=== PATIENT | female | born 1940 | race Caucasian/White ===

== ENCOUNTER 2021-04-15 06:46 | Observation (INO) ==
--- NOTE | 2021-04-08 15:37 | PAT Medication Instructions ---
Medication Instructions Date of Service April 08, 2021 Home Medications atorvastatin 40 mg PO HS celecoxib [Celebrex] 200 mg PO QAM levothyroxine [Synthroid] 75 mcg PO QAM raloxifene [Evista] 60 mg PO QAM ASK your surgeon for instructions celecoxib [Celebrex] 200 mg PO QAM ASK your prescriber and surgeon raloxifene [Evista] 60 mg PO QAM Take morning of surgery With a small sip of water, OTHERWISE NOTHING TO EAT OR DRINK AFTER MIDNIGHT: levothyroxine [Synthroid] 75 mcg PO QAM Take evening before surgery atorvastatin 40 mg PO HS Other Notes If you have any questions please call us at [phone] or [phone] or or [phone]
--- NOTE | 2021-04-11 10:17 | Anesthesiology Consultation ---
Date of Service April 11, 2021 Assessment & Plan (1) Encounter for pre-operative examination: COVID Status: As of 04/11 assessment, patient denies travel to endemic area, known exposure/sick contacts, or symptoms of COVID19. Patient denies impending travel plans, gatherings or events between now and surgery. Preoperative COVID19 testing completed today at [facility] (04/11). Patient made aware to self-isolate as much as possible between COVID testing and surgery. Pt is fully vaccinated for COVID-19. Finnish is primary language, but Yemeni comprehension and fluency is good/sufficient. Accompanied by [id number] to [facility] appointment, who helped with some translation. Chart Review Chart Review: Acceptable Risk for Surgery and Patient seen in Pre Admission Testing Teaching & Discussion Instructed NPO after midnight before surgery, except medications with 15 cc of water. Medication instructions provided according to the [facility] guidelines. History Surgery Operation Date: 04/15/21 08:50 Proposed Procedures p Left Total Knee Arthroplasty(Left) - Louis Houston MD Height/Weight Height: 5 ft 1 in Weight: 55.2 kg Allergies Allergy/AdvReac Type Severity Reaction Status Date / Time No Known Allergies Allergy Verified 04/11/21 08:55 Medications Home Medications Medication Instructions Recorded Confirmed Last Taken atorvastatin 40 mg PO HS 04/04/21 04/11/21 Unknown celecoxib [Celebrex] 200 mg PO QAM 04/04/21 04/11/21 Unknown levothyroxine [Synthroid] 75 mcg PO QAM 04/04/21 04/11/21 Unknown raloxifene [Evista] 60 mg PO QAM 04/04/21 04/11/21 Unknown Past Medical History Medical History Anxiety Bilateral primary osteoarthritis of knee Hyperlipidemia Hypothyroidism Osteoarthritis Exercise / Class Metabolic Activity II 4-5 Yardwork/Stairs/Walk up hill (No limiting Cp or SOB with 1FOS) Past Surgical History Surgical History History of cataract surgery bilater History of hysterectomy tumor removed from one ovary Past Anesthesia History No Hx of Anesthesia Complications and No Family Hx of Anesthesia Complications History of PONV No Hx of PONV and No Hx of Motion Sickness Social History Smoking Status: Never smoker Do You Dip or Chew Tobacco: No Hx Alcohol Use: No Hx Substance Use: No substance use type: does not use Review of Systems Pt denies any recent chest pain, shortness of breath, cough, fever, URI, or uncontrolled acid reflux. +sometimes gets palpitations with anxiety Physical Exam Vital Signs BP: 112/75 P: 79bpm SPO2: 96% RA T: 98.4 F R: 16 ENMT Mouth: + dental restorations (front upper incisors capped) and + small oral opening; no chipped teeth and no loose teeth Thyromental Distance: > or= 3.5 Finger Breadths Mallampati Class: III Neck normal visual inspection; neck extension not limited Respiratory normal respiratory effort, lungs clear to auscultation Cardiovascular RRR, no murmur, no edema Testing Laboratory Results 04/11/21 10:35 PT 10.2 Seconds (9.0-12.0) 04/11/21 10:35 INR 1.0 (0.9-1.1) 04/11/21 10:35 APTT 26.1 Seconds (21.0-31.0) 04/11/21 10:35 Blood Type O Positive 04/11/21 10:35 Antibody Screen NEGATIVE 04/11/21 10:35 CBC 03/31/21 WBC: 4.5 H/H: 12.7/37.8 PLATELETS: 351 Electrocardiogram Date: 04/11/21 Findings: + NSR @ (74bpm) Chest X-Ray Date: 04/11/21 Findings: + NAD
--- NOTE | 2021-04-11 11:10 | XRay Report ---
XR chest Pre-admission PA/Lat HISTORY: 80 years-old Female pat chronic degenerative joint disease COMPARISON: None TECHNIQUE: PA and lateral views of the chest FINDINGS: The cardiac mediastinal and hilar silhouettes are within normal limits. There is no pneumothorax, ple ural effusion, airspace consolidation or overt pulmonary edema. There is mild rotation on the lateral view. Bones of the chest appear grossly intact. IMPRESSION: No acute process. ACT 112: Negative or not required by law. The above report was generated using voice recognition software. It may contain grammatical, syntax o r spelling errors. Electronically signed by: Carmelo Borrero M.D. 04/11/2021 11:09 AM
[2021-04-11 11:31] LABS: Partial Thromboplastin Time 26.1 Seconds (21.0-31.0); Prothrombin Time 10.2 Seconds (9.0-12.0)
[2021-04-11 13:21] LABS: BUN Creatinine Ratio 20.3 (10-20); Calcium 8.9 mg/dl (8.5-10.1); Creatinine Clr Calc Pharmacy 46.6 ml/min; Est GFR (African American) 88.5 ml/min; Est GFR (Non-African American) 76.3 ml/min; Potassium 3.9 mmol/L (3.5-5.1)
--- NOTE | 2021-04-11 18:00 | Electrocardiogram Report ---
Test Reason : Blood Pressure : / mmHG Vent. Rate : 074 BPM Atrial Rate : 074 BPM P-R Int : 164 ms QRS Dur : 076 ms QT Int : 402 ms P-R-T Axes : 069 037 052 degrees QTc Int : 446 ms Normal sinus rhythm Normal ECG No previous ECGs available Confirmed by Arnav Vance ([id number]) on 04/11/2021 6:00:00 PM Referred By: Louis Houston Confirmed By:Samuel Vance
[~2021-04-15 06:46] MED LIST: ACETAMINOPHEN 500 MG TAB PO SCH; BUPIVACAINE 0.5 % 5 MG/1 ML PF 10ML VIAL ONE; BUPIVACAINE LIPOSOME/PF 266 MG, BUPIVACAINE/EPINEPHRINE 50 ML, SODIUM CHLORIDE 0.9% PF ... INFIL SCH; EPINEPHrine INJ 1 MG/ML AMP ONE; FAMOTIDINE 20 MG TAB PO SCH; GABAPENTIN 300 MG CAP PO SCH; LR 500ML BOLUS, THEN 15ML/HR IV SCH; LR 60ML/HR IV SCH; METOCLOPRAMIDE HCL 10 MG TABLET PO SCH; ROPIVACAINE 0.5% 5 MG/ML 30 ML VIAL ONE; Scopolamine 1 MG TDSY TD SCH; TRANEXAMIC ACID 1,000 MG **IV Intra-op IV SCH; ceFAZolin 2000MG 2,000 MG/15 ML SYR IV SCH
--- NOTE | 2021-04-15 06:52 | History & Physical Bridge Note ---
Date of Service April 15, 2021 History & Physical Bridge Note I have examined the patient, reviewed the History & Physical and in the interval since the performance of the History & Physical I have noted the following changes of clinical significance: no changes noted
[2021-04-15] MEDS ORDERED: MIDAZOLAM HCL 1 MG/ML 2ML VIAL ONE (07:41)
[2021-04-15] MEDS ORDERED: fentaNYL citrate PF 100 MCG/2 ML VIAL ONE (07:41)
[2021-04-15] MEDS ORDERED: ATROPINE SULFATE 0.1 MG/ML 10ML SYR IV PRN (08:24)
[2021-04-15] MEDS ORDERED: PHENYLEPHRINE 100MCG/ML 5ML SYR IV PRN (08:24)
[2021-04-15] MEDS ORDERED: ePHEDrine sulfate 50 MG/ML AMP IV PRN (08:24)
[2021-04-15] MEDS ORDERED: MEPERIDINE HCL 25 MG/ML CARP/VIAL IV PRN (08:24)
[2021-04-15] MEDS ORDERED: ONDANSETRON INJ 2 MG/ML 2 ML VIAL IV PRN ×2 (08:24→12:59)
[2021-04-15] MEDS ORDERED: LABETALOL HCL IV 5 MG/ML 20ML IV PRN (08:24)
[2021-04-15] MEDS ORDERED: HYDROmorphone INJ 1 MG/ML SYRINGE IV PRN (08:24)
[2021-04-15] MEDS ORDERED: BUPIVACAINE 0.25% PF 30 ML VIAL ONE (09:36)
[2021-04-15] MEDS ORDERED: BUPIVACAINE LIPOSOME 1.3% 266 MG/20 ML VIAL ONE (09:36)
[2021-04-15] MEDS ORDERED: SODIUM CHLORIDE 0.9% PF 50 ML VIAL ONE (09:36)
[2021-04-15] MEDS ORDERED: PHENYLEPHRINE 100MCG/ML 5ML SYR ONE (10:27)
[2021-04-15] MEDS ORDERED: PROPOFOL IV EMULSION 10 MG/ML 20 ML VIAL IV ONE (10:27)
[2021-04-15] MEDS ORDERED: ONDANSETRON INJ 2 MG/ML 2 ML VIAL ONE (10:38)
[2021-04-15] MEDS ORDERED: DEXAMETHASONE SOD INJ 4 MG/ML VIAL ONE (10:38)
--- NOTE | 2021-04-15 11:40 | Operative Report ---
Post Operative Report Pre & Post Diagnosis Operation Date: 04/15/21 08:50 Pre-Op Diagnosis: Left Knee DJD, Left Knee Pain Post-Op Diagnosis: Left Knee DJD, Left Knee Pain I identified the patient and participated in the time-out.: Yes Procedure Operation Date: 04/15/21 08:50 Actual Procedures p Left Total Knee Arthroplasty(Left) - Louis Houston MD Surgeon Louis Houston MD Mortgage Coordinator OSITO Hawkins Estimated Blood Loss 50 Findings Consistent with Post-Op Diagnosis Operative findings were advanced left knee DJD. She extensive grade 4 cywe-di-exml disease and eburnation of the entire medial compartment. She had a varus deformity to her knee. Moderate sized knee effusion. The lateral and patellofemoral compartments were fairly well-preserved. Fluids 1000 cc. Specimens Left knee sent for pathology. Drains None Anesthesia Type General Regional Complications none Disposition Accompanied Patient To Recovery: No Disposition: Recovery Room Indications Patient is a 80-year-old female has had a long history of bilateral knee pain discomfort left side greater than the right. She lives alone in [place]. She is got family in this area. She failed conservative measures and elected proceed with a left total knee replacement done here so her family was able to t o assist with her postoperative care. Description of Procedure Operative implants consist of: 1 Biomet Vanguard size 65 left posterior stabilized femoral component. 2. Biomet size 67 tibial tray. 3. 12 mm posterior stabilized polyethylene insert. 4. 28 x 8 all polypatella. The patient was taken the operating, identified, placed on the operating table supine position but all contact areas were properly padded. IV antibiotics 5 by anesthesia team. A spinal anesthetic and abductor canal block had been provided in the holding area. Ramos catheter was placed in sterile fashion for left thigh turn was then placed in left lower extremities and prepped draped in usual sterile fashion. The left leg was elevated exsanguinated with use of an Esmarch and turns placed at 300 mmHg. An anterior posterior left knee was then performed to longitudinal incision centered over the patella. Sharp dissection got through subcutaneous is down to the extensor mechanism. A medial parapatellar arthrotomy incision was made. Some subperiosteal dissection was carried out medially but the fat pad was resected from each patella tendon. The lateral patellofemoral ligament was released. Patella subluxated laterally. At this point in the procedure the patient was still feeling her leg at this point so a general anesthetic was implemented. We had temporarily halted the procedure and once this was performed the procedure was resumed expediently. The knee was flexed. The osteophytes were taken off distal femur. The ACL and PCL were then released from distal femur and the tibia subluxated anteriorly. The external treatment line jig was then placed in the interface the tibia and adjusted 12 mm medially. Proximal tibial cut was made remove about 2 mm of bone from the most deficient aspect medial tibial plateau. Some osteophytes taken off medial and posterior medially. Tibia sized to a size 67. Attention drawn the femur. The distal femur then with a sharp drop with intramedullary canal was suction. A left 5 degree valgus cutting guide was placed. Distal femoral cutting block was pinned in place. Distal femoral cut was made to take an additional 3 mm of bone off distal femur. The femur was then sized to a size 65. We did downsize this. She had a fairly small knee from the medial lateral dimensions and but I did not feel we could downsize any further. The AP cutting block was pinned parallel to the epicondylar axis which was 4 degrees of external rotation. The anterior cut, anterior chamfer, posterior cut, posterior chamfer cuts were made. The box cutting guide was placed in just slight lateral box cut was made. The knee was flexed. The remnants of medial lateral menisci were excised. The osteophyte taken off the posterior aspect the femur. A trial femoral component was placed. The tibial tray was pinned in maximum external rotation and the drill and stem punch were used to create defect in proximal tibia for the tibial tray. Knee was then trialed and the 12 mm insert fit most appropriately. Attention drawn the patella. The patella was cleaned of all soft tissue. Patella thickness measured 21 mm in thickness was cut down to 13. Was sized to a size 28 patella. The lug holes were drilled for the 28 patella. The lateral osteophyte is moved. Patella button was placed. Knee was taken through range of motion patella tracked nicely with no thumbs test. Attention drawn to place the permanent components. Nupathe all trial components were removed. Bone plug was placed in the distal femur limit blood loss. Double batch Palacos G cement was mixed. A Biomet [employer] size 65 left posterior stabilized femoral component, size 67 tibial tray, a 12 mm posterior stabilized polyethylene insert, and a 28 x 8 all polypatella then cemented in place. The knee was brought out into full extension total cement hardened. Final cement check was then performed. The pericapsular tissues were injected with total of 100 cc of a combination of 50 cc of half percent Marcaine with epinephrine, 30 cc normal saline, 20 cc of Exparel. The patient did receive 1 g tranexamic acid. The tourniquet was then let down for final tourniquet time of 53 minutes. Hemostasis assured use electrocautery. Extensor mechanism closed with combination 1 PDS suture #1 Vicryl suture in [id number] fashion. Extensor mechanism checked found to be intact and subcutaneous tissue then closed 2 Dexon suture in a buried interrupted fashion. Skin was closed skin stephany. Leg was then cleaned and dried and sterile dressing both Xeroform, 4 x 4's, sterile cast padding, Sergio bandage were applied. Patient then taken to the recovery room in stable condition. Patient tolerated procedure well and there were no complications. Shawn Hawkins, my physician anesthetic assistant, was present for the entire procedure. His assistance was essential and required for appropriate patient positioning, prepping and draping, surgical exposure, performing the technical details of the operation, placement the implants, closure of the wound, and placement of the sterile bandage. I attest to the content of the Intraoperative Record and any orders documented therein. Any exceptions are noted below.
[2021-04-15] MEDS: fentaNYL citrate PF 100 MCG/2 ML VIAL IV PRN ×4 (11:52→12:07)
--- NOTE | 2021-04-15 12:10 | Anesthesiology Progress Note ---
Date of Service April 15, 2021 Anesthesia Post Procedure Vital Signs Vital Signs: Temp Pulse Pulse Resp BP BP Pulse Ox 04/15/21 11:55 83 17 130/75 97 04/15/21 11:45 85 18 116/76 99 04/15/21 11:37 36.3 C L 87 14 121/78 99 04/15/21 09:40 106 H 16 93/66 L 99 04/15/21 09:30 80 16 91/59 L 99 04/15/21 07:41 37.1 C 84 16 117/72 97 Pain Intensity Left Knee: Pain Intensity: 2 Transfer of Care Handoff Completed per policy Notes Mental Status: alert / awake / arousable Patient Amnestic to Procedure: Yes Nausea / Vomiting: adequately controlled Pain: adequately controlled Airway Patency, RR, SpO2: stable & adequate BP & HR: stable & adequate Hydration State: stable & adequate Neuraxial Anesthesia: was administered and sensory block is resolving Anesthetic Complications: no major complications apparent and Pt Satisfied with anesthetic care Notes: The patient's spinal block did not appear to be working well so she was converted to a general anesthetic. She was having some surgical pain in the PACU but is feeling better now after receiving fentanyl.
--- NOTE | 2021-04-15 12:12 | XRay Report ---
XR knee LT 1 or 2V routine HISTORY: 80 years-old Female Surgical Post Op left knee total joint arthroplasty COMPARISON: Knee radiographs 04/11/2021 TECHNIQUE: 2 views of the left knee FINDINGS: Left knee total joint arthroplasty and patella resurfacing. Anterior midline skin stephany are present along with expected postsurgical soft tissue swelling and deep tissue air. No acute fracture, malali gnment or opaque foreign body. IMPRESSION: Left knee total joint arthroplasty with expected postoperative changes. ACT 112: Negative or not required by law. The above report was generated using voice recognition software. It may contain grammatical, syntax o r spelling errors. Electronically signed by: Carmelo Borrero M.D. 04/15/2021 12:11 PM
[2021-04-15] MEDS ORDERED: NALOXONE HCL 0.4 MG/1 ML VIAL/CARP IV PRN (12:59)
[2021-04-15] MEDS ORDERED: traMADol HCL 50 MG TABLET PO PRN (12:59)
[2021-04-15] MEDS ORDERED: HYDROmorphone INJ 0.5 MG/0.5 ML SYR IV PRN (12:59)
[2021-04-15] MEDS ORDERED: METOCLOPRAMIDE HCL INJ 5 MG/ML 2 ML VIAL IV PRN (12:59)
[2021-04-15] MEDS ORDERED: ALUMINUM/MAGNESIUM SUSP 30 ML UDC PO PRN (12:59)
[2021-04-15] MEDS ORDERED: MAGNESIUM HYDROXIDE SUSP 30 ML UDC PO PRN (12:59)
[2021-04-15] MEDS ORDERED: bisacodyL 10 MG SUPP PR PRN (12:59)
[2021-04-15] MEDS: SODIUM CHLORIDE 0.9% 1,000 ML IV SCH ×2 (13:18→23:09)
[2021-04-15] MEDS: KETOROLAC TROMETHAMINE 15 MG/ML VIAL IV SCH ×2 (15:42→21:16)
[2021-04-15] MEDS: ACETAMINOPHEN 500 MG TAB PO SCH ×2 (15:42→21:17)
[2021-04-15] MEDS: Scopolamine CHECK PATCH PLACEMENT SCH ×2 (15:48→23:00)
[2021-04-15] MEDS: FERROUS GLUCONATE 324 MG TAB PO SCH (16:45)
[2021-04-15] MEDS: ASCORBIC ACID 500 MG TAB PO SCH (16:45)
[2021-04-15] MEDS ORDERED: TRANEXAMIC ACID / 0.7% NACL 1,000 MG/100 ML BAG IV SCH (17:30)
[2021-04-15] MEDS: ceFAZolin 1000MG 1,000 MG/7.5 ML SYR IV SCH (17:59)
[2021-04-15] MEDS ORDERED: SENNA 8.6 MG TAB PO SCH (21:00)
[2021-04-15] MEDS ORDERED: ATORVASTATIN 40 MG TAB PO SCH (21:00)
[2021-04-15] MEDS: ASPIRIN 81 MG ECTAB PO SCH (21:16)
[2021-04-15] MEDS: DOCUSATE SODIUM 100 MG CAP PO SCH (21:16)
[2021-04-16] MEDS: KETOROLAC TROMETHAMINE 15 MG/ML VIAL IV SCH ×2 (03:14→09:00)
[2021-04-16] MEDS: ceFAZolin 1000MG 1,000 MG/7.5 ML SYR IV SCH (03:14)
[2021-04-16 06:04] LABS: Hematocrit (blood only) 33.8 % (37-47); Hemoglobin 11.3 g/dL (12.0-16.0); Mean Corpuscular Hemoglobin 30.2 pg (25-34); Mean Corpuscular Hgb Conc 33.4 g/dL (32-36); Mean Corpuscular Volume 90.4 fL (80-100); Mean Platelet Volume 9.2 fL (7.4-10.4); Platelet Count 364 K/uL (130-400); RDW Standard Deviation 42.9 fL (36.4-46.3); Red Blood Count 3.74 M/uL (4.2-5.4); White Blood Count 8.15 K/uL (4.8-10.8)
[2021-04-16] MEDS: ACETAMINOPHEN 500 MG TAB PO SCH (06:12)
[2021-04-16] MEDS ORDERED: LEVOTHYROXINE SODIUM 75 MCG TABLET PO SCH (06:30)
[2021-04-16 06:34] LABS: BUN Creatinine Ratio 12.7 (10-20); Calcium 8.9 mg/dl (8.5-10.1); Creatinine Clr Calc Pharmacy 39.3 ml/min; Est GFR (African American) 71.9 ml/min; Est GFR (Non-African American) 62.1 ml/min; Potassium 3.3 mmol/L (3.5-5.1)
[2021-04-16] MEDS: Scopolamine CHECK PATCH PLACEMENT SCH (07:47)
[2021-04-16] MEDS: ASCORBIC ACID 500 MG TAB PO SCH (07:47)
[2021-04-16] MEDS: FERROUS GLUCONATE 324 MG TAB PO SCH (07:48)
[2021-04-16] MEDS ORDERED: dexAMETHasone 10 MG in SYRINGE 0 ML IV SCH (08:00)
[2021-04-16] MEDS ORDERED: POTASSIUM CHLORIDE CRTAB 20 MEQ TABCR PO ONE (08:13)
--- NOTE | 2021-04-16 08:30 | Progress Notes ---
DATE: 04/16/2021 SUBJECTIVE: A 80-year-old white female postop day 1 from a left knee replacement. Had a pretty good night. Pain is controlled. No chest pain or shortness of breath. Not feeling dizzy or lightheaded. OBJECTIVE: VITAL SIGNS: Temperature 36.7. Vital signs stable. GENERAL: Shows a pleasant elderly female. She is lying in bed, looks pretty comfortable. She is doing a heel prop. EXTREMITIES: Examination of the left leg reveals the leg to be well aligned. She can dorsiflex and plantarflex her foot appropriately. She is neurologically intact. LABORATORY DATA: Hemoglobin 11.3. Hematocrit 33.8. Electrolytes are stable. Potassium is a little bit low at 3.3. ASSESSMENT: A 80-year-old white female postop day 1 from left knee replacement, doing well. Pain is controlled. She is neurologically intact. Potassium is a little low and we will supplement that. PLAN: 1. DVT prophylaxis including thigh-high TEDs, SCDs, and aspirin twice a day. 2. PT/OT. Weight bear as tolerated. Left total knee protocol. 3. Pain control, doing well with current pain regimen. 4. Hypokalemia. We will supplement her potassium today. 5. Disposition: Plan to discharge to home with family and home health likely later today.
[2021-04-16] MEDS: ASPIRIN 81 MG ECTAB PO SCH (08:59)
[2021-04-16] MEDS: DOCUSATE SODIUM 100 MG CAP PO SCH (08:59)
[2021-04-16] MEDS ORDERED: PROSOURCE NO CARB 30 ML/PKT PO SCH (09:00)
[2021-04-16] MEDS ORDERED: MULTIVITAMIN TAB PO SCH (09:00)
[2021-04-16] MEDS ORDERED: RALOXIFENE HCL 60 MG TAB PO SCH (09:00)
--- NOTE | 2021-04-16 10:32 | Anesthesiology Progress Note ---
Date of Service April 16, 2021 Anesthesia Post Procedure Vital Signs Vital Signs: Temp Pulse Pulse Resp BP Pulse Ox 04/16/21 07:59 36.7 C 79 16 102/63 96 04/16/21 03:17 36.7 C 89 16 105/63 96 04/15/21 22:43 36.9 C 64 16 102/64 96 04/15/21 19:20 36.6 C 92 H 16 107/66 99 04/15/21 15:50 76 16 126/84 99 04/15/21 14:29 90 16 104/64 99 04/15/21 13:50 82 16 106/69 99 04/15/21 13:22 36.4 C L 80 18 107/70 100 04/15/21 12:50 36.4 C L 83 14 106/71 100 04/15/21 12:30 85 15 106/67 97 04/15/21 12:25 36.5 C 88 15 102/66 96 04/15/21 12:15 84 16 109/67 96 04/15/21 12:05 83 12 108/63 94 04/15/21 11:55 83 17 130/75 97 04/15/21 11:45 85 18 116/76 99 04/15/21 11:37 36.3 C L 87 14 121/78 99 Pain Intensity Left Knee: Pain Intensity: 5 Transfer of Care Handoff Completed per policy Notes Mental Status: alert / awake / arousable and participated in evaluation Patient Amnestic to Procedure: Yes Nausea / Vomiting: adequately controlled Pain: adequately controlled Airway Patency, RR, SpO2: stable & adequate BP & HR: stable & adequate Hydration State: stable & adequate Anesthetic Complications: no major complications apparent and Pt Satisfied with anesthetic care
--- NOTE | 2021-04-22 06:43 | Discharge Summary ---
Date of Service April 22, 2021 Discharge Data Procedures Performed Operation Date: 04/15/21 08:50 Actual Procedures p Left Total Knee Arthroplasty(Left) - Louis Houston MD Hospital Course (1) Status post total left knee replacement: This patient is a 81 year old admitted on 04/15/21 and underwent total knee arthroplasty. She tolerated the procedure well and there were no complications. Transferred to the PACU post op and later to the orthopedic floor for further care. She was given ancef for antibiotic prophylaxis. She was also given CUCO stockings, SCDs, and aspirin for DVT prophylaxis. Hemoglobin, hematocrit, and vital signs were monitored during her hospital stay and remained stable. Did not require any blood transfusions. There were no complications during her hospital stay. By post op day #1 the patient was tolerating a regular diet, pain was reasonably controlled with oral pain medicine, and she was participating in physical therapy. On post op day #1 the patient was discharged home and set up with home health care. She was given printed discharge instructions including prescriptions for extra strength tylenol, aspirin, and tramadol. Continue physic al therapy, weight bearing as tolerated. Continue CUCO stockings. Follow up approximately 2 weeks post op or sooner if there are problems or concerns. Coding Level of Care Code None Diagnoses Status post total left knee replacement Z96.652
== END 2021-04-16 11:25 | disposition home health service (06) ==
LOC: 3E 06:46 → ASU 06:46

== ENCOUNTER 2021-06-14 06:35 | Observation (INO) ==
--- NOTE | 2021-06-13 07:57 | Anesthesiology Consultation ---
Date of Service June 13, 2021 Assessment & Plan (1) Encounter for pre-operative examination: - COVID screening: Per assessment on 06/10: No known COVID-19 positive contacts or current COVID-19 related symptoms. Surgeon arranged preop COVID testing (done 06/10) which was negative. Travel screen- pt travelled from [place] 06/09 via car (lives there, staying with son locally for upcoming surgery). Patient vaccinated. Preop COVID test day after travel from out of state. Will order cepheid for AM DOS. - S/P Left TKA (04/15/21): SAB x1 attempt + PNB > MD called to OR by [facility] d/t pt moving legs, converted to GA > LMA#4 (easily placed) at [facility] Chart Review Chart Review: Patient NOT seen in Pre Admission Testing History Surgery Operation Date: 06/14/21 08:50 Proposed Procedures p Right Total Knee Replacement - Louis Houston MD Height/Weight Height: 5 ft Weight: 53.524 kg Allergies Allergy/AdvReac Type Severity Reaction Status Date / Time No Known Allergies Allergy Verified 06/10/21 15:45 Medications Home Medications Medication Instructions Recorded Confirmed Last Taken atorvastatin 40 mg tablet 40 mg PO HS 04/04/21 06/10/21 04/14/21 20:30 celecoxib 200 mg capsule (Celebrex) 200 mg PO QAM 04/04/21 06/10/21 04/14/21 07:00 levothyroxine 75 mcg tablet 75 mcg PO QAM 04/04/21 06/10/21 04/15/21 05:00 (Synthroid) raloxifene 60 mg tablet (Evista) 60 mg PO QAM 04/04/21 06/10/21 04/14/21 07:00 tramadol 50 mg tablet 50 mg PO Q4H PRN #40 tab 04/16/21 06/10/21 Unknown ondansetron HCl 4 mg tablet 4 mg PO Q6 PRN #15 tab 04/19/21 06/10/21 Unknown Past Medical History Medical History Anemia Anxiety Hyperlipidemia Hypothyroidism Osteoarthritis Past Family History Family History Other No family history of adverse response to anesthesia Past Surgical History Surgical History History of cataract surgery R/L History of hysterectomy tumor removed from one ovary History of total knee replacement Left TKA (04/15/21): SAB x1 attempt + PNB > MD called to OR by [facility] d/t pt moving legs, converted to GA > LMA#4 (easily placed) at [facility] Social History Smoking Status: Never smoker Hx Alcohol Use: No substance use type: does not use Lab Results Anesthesia Preop Results Results Anesthesia Widget: WBC 4.13 K/uL (4.8-10.8) L 06/06/21 Hgb 10.8 g/dL (12.0-16.0) L 06/06/21 Hct 34.4 % (37-47) L 06/06/21 Plt 427 K/uL (130-400) H 06/06/21 Na 134 mmol/L (136-145) L 06/06/21 K 3.8 mmol/L (3.5-5.1) 06/06/21 Cl 102 mmol/L (98-107) 06/06/21 CO2 27 mmol/L (21-32) 06/06/21 BUN 12 mg/dl (7-18) 06/06/21 Creat 0.72 mg/dl (0.6-1.2) 06/06/21 Glucose Level 79 mg/dl (70-99) 06/06/21 PT 10.1 Seconds (9.0-12.0) 06/06/21 PTT 26.1 Seconds (21.0-31.0) 04/11/21 INR 1.0 (0.9-1.1) 06/06/21 SARS-CoV-2, RNA, NAAT NEGATIVE (NEGATIVE) 04/15/21 Blood Type O Positive 06/06/21 Antibody Screen NEGATIVE 06/06/21 Testing Electrocardiogram Date: 04/11/21 Findings: + NSR @ (74) Chest X-Ray Date: 04/11/21 Findings: + NAD
[~2021-06-14 06:35] MED LIST changes: +BUPIVACAINE LIPOSOME/PF 266 MG, BUPIVACAINE/EPINEPHRINE 50 ML, SODIUM CHLORIDE 0.9% 30 ... INFIL SCH; -BUPIVACAINE LIPOSOME/PF 266 MG, BUPIVACAINE/EPINEPHRINE 50 ML, SODIUM CHLORIDE 0.9% PF ... INFIL SCH; -EPINEPHrine INJ 1 MG/ML AMP ONE; -Scopolamine 1 MG TDSY TD SCH
--- NOTE | 2021-06-14 06:56 | History & Physical Bridge Note ---
Date of Service June 14, 2021 History & Physical Bridge Note I have examined the patient, reviewed the History & Physical and in the interval since the performance of the History & Physical I have noted the following changes of clinical significance: no changes noted
[2021-06-14] MEDS ORDERED: MIDAZOLAM HCL 1 MG/ML 2ML VIAL ONE (08:29)
[2021-06-14] MEDS ORDERED: fentaNYL citrate 100 MCG/2 ML VIAL ONE (08:30)
[2021-06-14] MEDS ORDERED: LIDOCAINE 2% 2 ML VIAL/AMP(20MG/ML) INFIL ONE (08:31)
[2021-06-14] MEDS ORDERED: PROPOFOL IV EMULSION 10 MG/ML 20 ML VIAL IV ONE (08:31)
[2021-06-14] MEDS ORDERED: SODIUM CHLORIDE 0.9% PF 50 ML VIAL ONE (08:47)
[2021-06-14] MEDS ORDERED: BUPIVACAINE LIPOSOME 1.3% 266 MG/20 ML VIAL ONE (08:47)
[2021-06-14] MEDS ORDERED: BUPIVACAINE 0.25% 30 ML VIAL ONE (08:48)
[2021-06-14] MEDS ORDERED: EPINEPHrine INJ 1 MG/ML AMP ONE (08:48)
[2021-06-14] MEDS ORDERED: ONDANSETRON INJ 2 MG/ML 2 ML VIAL ONE (09:19)
[2021-06-14] MEDS ORDERED: ePHEDrine sulfate 50 MG/ML AMP ONE (09:19)
[2021-06-14] MEDS ORDERED: SODIUM CHLORIDE 0.9% INJ 10 ML VIAL ONE (09:20)
[2021-06-14] MEDS ORDERED: PHENYLEPHRINE 100MCG/ML 5ML SYR ONE (09:20)
--- NOTE | 2021-06-14 10:58 | Operative Report ---
Post Operative Report Pre & Post Diagnosis Operation Date: 06/14/21 08:50 Pre-Op Diagnosis: Right Knee Advanced Degenerative Joint Disease Post-Op Diagnosis: Right Knee Advanced Degenerative Joint Disease I identified the patient and participated in the time-out.: Yes Procedure Operation Date: 06/14/21 08:50 Actual Procedures p Right Total Knee Arthroplasty(Right) - Luois Houston MD Surgeon Louis Houston MD Corporate Executive Chef OSITO Hawkins Estimated Blood Loss 50 Findings Consistent with Post-Op Diagnosis Operative findings were advanced right knee DJD. She had pretty extensive grade 4 [id number] disease of the medial compartment as well as the patellofemoral compartment. The lateral compartments pretty well spared. Moderate-sized joint effusion. Fluids 1000 cc Specimens Right knee sent for pathology. Drains None Anesthesia Type Spinal MAC Complications none Disposition Accompanied Patient To Recovery: No Indications Patient is 81-year-old fairly active independent female has had a long history of bilateral knee pain discomfort. She been through extensive conservative treatment the past. She had her left knee replaced several months ago and is done well from this direct rehab nicely. She continued be limited by right knee pain and discomfort. She elected proceed with total knee arthroplasty on the right side. Description of Procedure Operative implants consist of: 1. Biomet Vanguard size 62.5 right posterior stabilized femoral component. 2. Biomet size 63 tibial tray. 3. 10 mm posterior stabilized polyethylene insert. 4. 28 x 8 all polypatella. The patient was taken to the operating, identified, placed on the operating table supine position but all contractors were properly padded. IV antibiotics tried by anesthesia team. Spinal anesthetic and abductor canal block had been provided in the holding area. A Ramos catheter was placed in sterile fashion. Right thigh turn was then placed in the right lower extremities and prepped and draped in usual sterile fashion. The right leg was elevated exsanguinated with use of an Esmarch and tourniquet placed at 300 mmHg. An anterior approach to the right knee was then performed to longitudinal incision centered over the patella. Sharp dissection got through subcutaneous this down the extensor mechanism. Medial parapatellar arthrotomy incision was made. Some subperiosteal dissection was carried out medially to the fat pad was resected beneath patella tendon. Lateral patellofemoral ligament was released. Patella subluxated laterally and the knee was flexed. The osteophytes were taken off distal femur. The ACL and PCL were then released from distal femur the tibia subluxated anteriorly. The external treatment line jig was then placed in the interface the tibia and adjusted 12 mm medially. Proximal tibial cut was made remove about 2 mm of bone from the most deficient aspect medial tibial plateau. Some osteophytes were taken off medial and posterior medially. Tibia sized to a size 63. Attention drawn the femur. The distal femur was entered the sharp drop with intramedullary canal was suction. A right 5 degree valgus cutting guide was placed. The distal femoral cutting block was pinned in place. Distal femoral cut was made to take an additional 3 mm of bone off distal femur. The femur was then sized to a size 62.5 it sized almost exactly to a 62.5. The AP cutting block was pinned parallel to the epicondylar axis which was 4 degrees of external rotation. The anterior cut, anterior chamfer, posterior cut, posterior chamfer cuts were made. The box cutting guide was placed in just slight lateral box cut was made. The knee was flexed. The remnants of the medial and lateral menisci were excised. The osteophytes were taken off the posterior aspect the femur. A trial femoral component was placed. The tibial tray was pinned in maximum external rotation and the drill and stem punch were used to create defect in proximal tibia for the tibial tray. Knee was then trialed and 10 mm insert fit most appropriately. Attention drawn the patella. Patella was cleaned of all soft tissues. Patella thickness measured 19 mm in thickness was cut down to about 12. Was sized to a size 28 patella. The lug holes were drilled for the 28 patella. The lateral osteophyte was removed. Patella button was placed. Knee was taken through range of motion patella tracked nicely with no thumbs test. Attention drawn to place the permanent comp onents. All trial components were removed. Bone plug was placed in the distal femur limit blood loss. Double batch Palacos G cement was mixed. A Biomet Vanguard size 62.5 right posterior stabilized femoral component, size 63 tibial tray, a 10 mm posterior stabilized polyethylene insert, and 28 x 8 all polypatella were then cemented in place. The knee was brought out into full extension until cement hardened. Final cement check was then performed. Pericapsular tissues were injected with total 100 cc of combination of 20 cc of Exparel, 30 cc normal saline, 50 cc of quarter percent Marcaine with epinephrine. The patient did receive 1 g tranexamic acid. The tourniquet was then let down for final tourniquet time of 52 minutes. Hemostasis reduced electrocautery. The wounds once again irrigated. Extensor mechanism closed with a combination 1 PDS suture #1 Vicryl suture in [id number] fashion. Extensor mechanism checked found to be intact the subcutaneous tissue then closed with 2 Dexon suture in a buried interrupted fashion skin was closed skin stephany. Leg was then cleaned and dried a sterile dressing was Xeroform, 4 x 4's, sterile cast padding, Sergio bandage applied. Patient then transferred to the recovery room in stable condition. Patient tolerated the procedure well and there were no complications. Shawn Hawkins, my physician academic assistant, was present for the entire procedure. His assistance was essential and required for appropriate patient positioning, prepping and draping, surgical exposure, performing the technical details of the operation, placement the implants, closure of the wound, and placement of the sterile bandage. I attest to the content of the Intraoperative Record and any orders documented therein. Any exceptions are noted below.
--- NOTE | 2021-06-14 11:24 | Anesthesiology Progress Note ---
Date of Service June 14, 2021 Anesthesia Post Procedure Vital Signs Vital Signs: Temp Pulse Pulse Resp BP Pulse Ox 06/14/21 11:20 36.1 C L 89 12 106/62 100 06/14/21 11:10 92 H 18 110/63 99 06/14/21 11:00 90 12 111/56 L 100 06/14/21 10:52 36.1 C L 96 H 15 110/60 97 06/14/21 07:15 36.9 C 92 H 20 144/68 H 99 Transfer of Care Handoff Completed per policy Notes Mental Status: alert / awake / arousable Patient Amnestic to Procedure: Yes Nausea / Vomiting: adequately controlled Pain: adequately controlled Airway Patency, RR, SpO2: stable & adequate BP & HR: stable & adequate Hydration State: stable & adequate Neuraxial Anesthesia: was administered and sensory block is resolving Anesthetic Complications: no major complications apparent
--- NOTE | 2021-06-14 11:29 | XRay Report ---
XR knee RT 1 or 2V routine CLINICAL HISTORY: Postoperative evaluation. COMPARISON: Knee radiographs June 06, 2021. FINDINGS: Alignment of the total right knee arthroplasty is anatomic. No periprosthetic fracture or unexpected radiopaque foreign body. There are skin stephany. IMPRESSION: Expected findings following total right knee arthroplasty. ACT 112: Negative or not required by law. Electronically signed by: Hero Butts M.D. 06/14/2021 11:28 AM
[2021-06-14] MEDS ORDERED: MAGNESIUM HYDROXIDE SUSP 30 ML UDC PO PRN (11:36)
[2021-06-14] MEDS ORDERED: ALUMINUM/MAGNESIUM SUSP 30 ML UDC PO PRN (11:36)
[2021-06-14] MEDS ORDERED: bisacodyL 10 MG SUPP PR PRN (11:36)
[2021-06-14] MEDS ORDERED: METOCLOPRAMIDE HCL INJ 5 MG/ML 2 ML VIAL IV PRN (11:36)
[2021-06-14] MEDS ORDERED: traMADol HCL 50 MG TABLET PO PRN (11:36)
[2021-06-14] MEDS ORDERED: HYDROmorphone INJ 0.5 MG/0.5 ML SYR IV PRN (11:36)
[2021-06-14] MEDS ORDERED: NALOXONE HCL 0.4 MG/1 ML VIAL/CARP IV PRN (11:36)
[2021-06-14] MEDS ORDERED: ONDANSETRON INJ 2 MG/ML 2 ML VIAL IV PRN (11:36)
[2021-06-14] MEDS ORDERED: ONDANSETRON 4 MG OD TAB PO PRN (11:40)
[2021-06-14] MEDS: SODIUM CHLORIDE 0.9% 1000ML 1,000 ML IV SCH ×2 (11:50→20:41)
[2021-06-14] MEDS: KETOROLAC TROMETHAMINE 15 MG/ML VIAL IV SCH ×2 (12:36→17:36)
[2021-06-14] MEDS: ACETAMINOPHEN 500 MG TAB PO SCH ×2 (14:04→20:39)
--- NOTE | 2021-06-14 14:10 | Progress Notes ---
DATE OF SERVICE: 06/14/2021. SUBJECTIVE: A 81-year-old female postop from a right knee replacement. She is doing well. Not havi ng any pain yet. Just starting to get the feeling and function back on her leg. No chest pain or sh ortness of breath. Not feeling dizzy or lightheaded. OBJECTIVE: VITAL SIGNS: Temperature 36.3. Vital signs are stable. PHYSICAL EXAMINATION: GENERAL: Shows a pleasant, elderly female. Sitting up in bed, looks comfortable. LUNGS: Clear to auscultation. HEART: Has a regular rate and rhythm. ABDOMEN: Soft, nontender, nondistended. EXTREMITIES: Grossly neurovascularly intact except as follows: Examination of the right leg reveals the leg to be well aligned. Dressing is clean, dry and intact. She is a little bit weak, but she d oes dorsiflex and plantarflex appropriately. She is neurologically intact. X-RAYS: X-rays of the right knee from recovery room are reviewed. It shows a right cemented posteri or stabilized total knee arthroplasty. Components looked to be in good position. No signs of proble ms. IMPRESSION: A 81-year-old white female postoperative from a right knee replacement, doing well. Ner ve function is just returning, but appears intact. Her pain is controlled. PLAN: 1. DVT prophylaxis including thigh-high TEDs, SCDs, and aspirin twice a day. 2. PT, OT, weightbear as tolerated. Right total knee protocol. 3. Pain control, doing well with current pain regimen. We are going to limit narcotics to avoid con fusion and nausea. 4. IV antibiotics x24 hours. 5. Disposition: Plan is to discharge her to home with some home health once adequately recovered and medically stable. Job ID: [id number]
[2021-06-14] MEDS: ASCORBIC ACID 500 MG TAB PO SCH (16:53)
[2021-06-14] MEDS: ceFAZolin 1000MG 1,000 MG/7.5 ML SYR IV SCH (16:56)
[2021-06-14] MEDS ORDERED: TRANEXAMIC ACID / 0.7% NACL 1,000 MG/100 ML BAG IV SCH (17:00)
[2021-06-14] MEDS: ASPIRIN 81 MG ECTAB PO SCH (20:39)
[2021-06-14] MEDS: DOCUSATE SODIUM 100 MG CAP PO SCH (20:39)
[2021-06-14] MEDS ORDERED: ATORVASTATIN 40 MG TAB PO SCH (21:00)
[2021-06-14] MEDS ORDERED: SENNA 8.6 MG TAB PO SCH (21:00)
[2021-06-15] MEDS: KETOROLAC TROMETHAMINE 15 MG/ML VIAL IV SCH ×3 (00:49→12:08)
[2021-06-15] MEDS: ceFAZolin 1000MG 1,000 MG/7.5 ML SYR IV SCH (00:49)
[2021-06-15] MEDS: ACETAMINOPHEN 500 MG TAB PO SCH ×2 (05:43→13:09)
[2021-06-15 06:01] LABS: Hematocrit (blood only) 30.3 % (37-47); Hemoglobin 9.7 g/dL (12.0-16.0); Mean Corpuscular Volume 90.4 fL (80-100); Mean Platelet Volume 9.3 fL (7.4-10.4); Platelet Count 352 K/uL (130-400); RDW Coefficient of Variation 13.3 % (11.5-14.5); RDW Standard Deviation 44.3 fL (36.4-46.3); Red Blood Count 3.35 M/uL (4.2-5.4); White Blood Count 4.69 K/uL (4.8-10.8)
[2021-06-15 06:22] LABS: Calcium 8.2 mg/dl (8.5-10.1); Creatinine Clr Calc Pharmacy 45.5 ml/min; Est GFR (African American) 92.3 ml/min; Est GFR (Non-African American) 79.7 ml/min; Potassium 3.9 mmol/L (3.5-5.1)
[2021-06-15] MEDS ORDERED: LEVOTHYROXINE SODIUM 75 MCG TABLET PO SCH (06:30)
[2021-06-15] MEDS ORDERED: dexAMETHasone 10 MG in SYRINGE 0 ML IV SCH (08:00)
[2021-06-15] MEDS: DOCUSATE SODIUM 100 MG CAP PO SCH (08:53)
[2021-06-15] MEDS: ASPIRIN 81 MG ECTAB PO SCH (08:53)
[2021-06-15] MEDS: ASCORBIC ACID 500 MG TAB PO SCH (08:53)
[2021-06-15] MEDS ORDERED: RALOXIFENE HCL 60 MG TAB PO SCH (09:00)
[2021-06-15] MEDS ORDERED: MULTIVITAMIN TAB PO SCH (09:00)
--- NOTE | 2021-06-15 13:37 | Progress Notes ---
DATE OF SERVICE: 06/15/2021. SUBJECTIVE: A 81-year-old white female postoperative day 1 from right knee replacement. She is doin g pretty well. Having some pain, but does okay with pain medicine. Gets a little bit nauseated. No chest pain or shortness of breath. Not feeling dizzy or lightheaded. OBJECTIVE: VITAL SIGNS: Temperature is 36.8. Vital signs stable. PHYSICAL EXAMINATION: GENERAL: A pleasant elderly female. Sitting up at her bedside chair and looks comfortable. EXTREMITIES: Examination of the right leg reveals the leg to be well aligned. She can dorsiflex and plantarflex her foot appropriately. She is neurologically intact. LABORATORY DATA: Hemoglobin 9.7. Hematocrit 30.3. Electrolytes are stable. ASSESSMENT: A 81-year-old white female postoperative day 1 from right knee replacement, doing pretty well. Pain is controlled. She is neurologically intact. PLAN: 1. DVT prophylaxis including thigh-high TEDs, SCDs, and aspirin twice a day. 2. PT, OT, weightbear as tolerated. Right total knee protocol. 3. Pain control, doing well with current pain regimen. We will send her home with some Zofran to he with her nausea. 4. Disposition: We will plan to discharge her home with some home health likely later today. Job ID: [id number]
--- NOTE | 2021-06-18 20:47 | Discharge Summary ---
Date of Service June 18, 2021 Discharge Data Procedures Performed Operation Date: 06/14/21 08:50 Actual Procedures p Right Total Knee Arthroplasty(Right) - Louis Houston MD Hospital Course (1) Status post total right knee replacement: This is a 81 year old patient admitted on 06/14/21 and underwent total knee arthroplasty. She tolerated the procedure well and there were no complications. Transferred to the PACU post op and later to the orthopedic floor for further care. She was given ancef for antibiotic prophylaxis. She was also given CUCO stockings, SCDs, and aspirin for DVT prophylaxis. Hemoglobin, hematocrit, and vital signs were monitored during her hospital stay and remained stable. Did not require any blood transfusions. There were no complications during her hospital stay. By post op day #1 the patient was tolerating a regular diet, pain was reasonably controlled with oral pain medicine, and she was participating in physical therapy. On post op day #1 the patient was discharged home and set up with home health care. She was given printed discharge instructions including prescriptions for extra strength tylenol, aspirin, tramadol, and zofran. Contin ue physical therapy, weight bearing as tolerated. Continue CUCO stockings. Follow up approximately 2 weeks post op or sooner if there are problems or concerns. Coding Level of Care Code None Diagnoses Status post total right knee replacement Z96.651
== END 2021-06-15 14:34 | disposition home health service (06) ==
LOC: ASU 06:35 → 3E 06:35